=== PATIENT | female | born 1980 | race Two or more races ===

== ENCOUNTER 2017-07-25 07:17 | Inpatient (IN) | payer OTHER ==
[2017-07-21 17:49] VITALS: BMI 39.8
[2017-07-25] MEDS ORDERED: MIDAZOLAM HCL 2 MG/2 ML SINGLE DOSE VIAL ONE (10:17)
[2017-07-25] MEDS ORDERED: ROCURONIUM BROMIDE 50 MG/5 ML VIAL ONE (10:22)
[2017-07-25] MEDS ORDERED: PROPOFOL 20 ML ONE ×3 (10:22→11:40)
[2017-07-25] MEDS ORDERED: SUCCINYLCHOLINE CHLORIDE 200 MG/10 ML VIAL ONE (10:22)
[2017-07-25] MEDS ORDERED: ceFAZolin SODIUM 1 GM VIAL IVPB ONE (10:25)
[2017-07-25] MEDS ORDERED: BUPIVACAINE HCL/PF 0.5% (5MG/ML) 10 ML VIAL IJ ONE ×2 (10:51→11:37)
[2017-07-25] MEDS ORDERED: NEOSTIGMINE METHYLSULFATE 0.5 MG/ML - 10 ML MDV ONE (11:37)
[2017-07-25] MEDS ORDERED: GLYCOPYRROLATE 0.2 MG/1 ML VIAL ONE (11:37)
--- NOTE | 2017-07-25 11:57 | HP ---
History & Physical Update - History History: No Change - Physical Physical: No Change - Assessment Assessment: No Change - Plan Plan: No Change (Laparoscopic possible open vertical sleeve gastrectomy, possible liver biopsy, upper endoscopy)
[2017-07-25] MEDS ORDERED: HYDROmorphone HCL CARPU-JECT 1 MG/1 ML DISP.SYRIN IVPB PRN (11:59)
--- NOTE | 2017-07-25 11:59 | OP ---
Operative Note - Note: Operative Date: 07/25/17 Pre-Operative Diagnosis: Morbid obesity Operation: Laparoscopic vertical sleeve gastrectomy, liver biopsy, EGD Post-Operative Diagnosis: Other (Morbid obesity, hepatomegaly) Surgeon: Zhang Morgan Carbide Operator: Lauren Del Cid Anesthesia: General Specimens Removed: Greater curvature of stomach, liver biopsy Estimated Blood Loss (mls): 30 Drains & Tubes with Location: 36Fr Bougie Operative Report Dictated: Yes
--- NOTE | 2017-07-25 12:10 | SURG ---
Surgery Configuration Management Architect Note Configuration Management Architect: Lauren Del Cid PA-C Date of Service: 07/25/17 Diagnosis: Morbid obesity Procedure: Laparoscopic vertical sleeve gastrectomy, liver biopsy, EGD I was present for the entirety of the operative procedure. For further detail, please refer to operative report. Visit type - Case Type Case Type: Scheduled Admission - Emergency Emergency Visit: No - New patient This patient is new to me today: Yes Date on this admission: 07/25/17
[2017-07-25] MEDS ORDERED: FAMOTIDINE 20 MG/50 ML IVPB 20 MG/50 ML MG IVPB ONE (12:12)
[2017-07-25] MEDS: METOCLOPRAMIDE HCL INJECTION 10 MG/2 ML VIAL IVPUSH SCH ×2 (12:15→18:16)
[2017-07-25] MEDS ORDERED: ONDANSETRON 4 MG/2 ML VIAL IVPUSH PRN (12:18)
[2017-07-25] MEDS ORDERED: FAMOTIDINE 20 MG PREMIXED IVPB IVPB ONE (12:30)
[2017-07-25] MEDS: ACETAMINOPHEN 1000 MG/100 ML VIAL (NON FORMULARY) IVPB SCH ×2 (12:35→18:15)
[2017-07-25 13:48] LABS: HEMATOCRIT 41.1 % (32.4-45.2); HEMOGLOBIN 13.1 GM/dL (10.7-15.3); MCH 30.4 pg (25.7-33.7); MCHC 31.9 g/dl (32.0-36.0); MEAN CELL VOLUME 95.4 fl (80-96); MEAN PLT VOLUME 8.6 fl (7.5-11.1); PLATELET COUNT 258 K/MM3 (134-434); RBC 4.31 M/mm3 (3.60-5.2); RDW 13.8 % (11.6-15.6); WHITE BLOOD COUNT 13.3 K/mm3 (4.0-10.0)
[2017-07-25] MEDS ORDERED: PROMETHAZINE HCL 25 MG/1 ML VIAL IVPUSH ONE (14:00)
[2017-07-25 14:08] LABS: ALBUMIN 3.2 g/dl (3.4-5.0); ALK PHOS 89 U/L (45-117); ANION GAP 9 (8-16); BILIRUBIN,TOTAL 0.3 mg/dL (0.2-1.0); BLOOD UREA NITROGEN 14 mg/dL (7-18); CALCIUM 8.1 mg/dL (8.5-10.1); CHLORIDE 103 mmol/L (98-107); CO2 26 mmol/L (21-32); CREATININE 0.9 mg/dL (0.55-1.02); GLUCOSE,RANDOM 141 mg/dL (74-106); SGOT/AST 35 U/L (15-37); SGPT/ALT 44 U/L (12-78); SODIUM 138 mmol/L (136-145); TOT PROT 6.5 g/dl (6.4-8.2)
[2017-07-25] MEDS ORDERED: PROMETHAZINE HCL 25 MG/1 ML VIAL ONE (14:27)
[2017-07-25] MEDS ORDERED: PROMETHAZINE HCL 25 MG/1 ML VIAL IVPB PRN (15:07)
[2017-07-25] MEDS: ONDANSETRON 4 MG/2 ML VIAL IVPUSH SCH ×2 (15:36→22:46)
--- NOTE | 2017-07-25 16:08 | SPEC ---
DATE OF OPERATION: 07/25/2017 SURGEON: India Morgan MD BOAT OFFICER: ASHLY Marsh PREOPERATIVE DIAGNOSES: 1. Morbid obesity. 2. Body mass index 39.8. 3. Gastroesophageal reflux disease. POSTOPERATIVE DIAGNOSES: 1. Morbid obesity. 2. Body mass index 39.8. 3. Gastroesophageal reflux disease. 4. Hepatomegaly. PROCEDURES: 1. Laparoscopic vertical sleeve gastrectomy. 2. Laparoscopic wedge liver biopsy. 3. Upper endoscopy/esophagogastroduodenoscopy. SPECIMEN: 1. Greater curvature of the stomach. 2. Liver biopsy. ESTIMATED BLOOD LOSS: 30 mL DRAINS: None. ANESTHESIA: GET. BOUGIE: 36-Hebrew. REASON FOR PROCEDURE: This is a 36-year-old female who presented to the office for weight loss options. After describing different options, she decided to proceed with a laparoscopic, possible open vertical sleeve gastrectomy, possible liver biopsy, upper endoscopy. RISKS AND BENEFITS: After describing the different options for weight loss management, the patient decided to proceed with a laparoscopic, possible open vertical sleeve gastrectomy. The patient was seen by the respective subspecialties and cleared for surgery. The risks and benefits of the procedure were explained. These included bleeding, infection, hernia, CO, DVT, PE, injury to surrounding structures including the liver, colon, bowel, spleen, esophagus, vessel injury, nerve injury, weight regain, gastric leak, staple line leak, sleeve leak, obstruction, vitamin deficiency, hair loss and as some of the possible complications. The patient understood and signed informed consent. DESCRIPTION OF PROCEDURE: The patient was placed supine on the operating room table. The patient underwent general endotracheal intubation. A Hyatt catheter was inserted. The arms were brought out at 90 degrees and secured. A footboard was placed and the legs were secured laterally with padding. The abdomen was prepped and draped in the usual sterile fashion. A timeout was performed. An incision was made in the left upper quadrant and a Veress needle inserted. Pneumoperitoneum was established. Subsequently, the Veress needle was removed and a 12-mm trocar was placed. The laparoscopic camera was then inserted and inspection of the abdominal cavity was performed. An incision was then made in the supraumbilical area and a 15-mm trocar was placed under direct visualization. A 5-mm trocar was then placed in the right upper quadrant and a 5-mm trocar was placed below the left subcostal margin. A stab wound was made in the subxiphoid area and a Jocelyne clamp inserted and removed to dilate the tract. A Evita liver retractor was inserted. The post was secured at the bedside by the nursing staff. The patient was placed in steep reverse Trendelenburg position and the Evita liver retractor was used to secure the liver towards the anterior abdominal wall. The pylorus was identified and 6 cm proximal to it, the lesser sac was entered using the LigaSure device. All lateral attachments to the greater curvature of the stomach, including the short gastric vessels, were ligated using the LigaSure device toward the gastrosplenic and gastrophrenic ligaments. Once this was done in its entirety, it was confirmed that all tubes within the nasal or oropharyngeal cavity, including a temperature probe, was removed by Anesthesia. The bougie was then inserted by Anesthesia. Transection of the stomach was then begun staying adjacent to the bougie but away from the angularis. Transection of the stomach was performed near the portion of the stomach where the lesser sac was entered. Two laparoscopic Endo-MADDIE black marcos were used at this location. Laparoscopic Endo MADDIE purple staple loads were then used for the remainder of the transection until the greater curvature of the stomach was fully transected. This was done staying close to the bougie. Care was taken to stay away from the angle of His cephalad. The staple line was then inspected. Hemostasis was identified. A leak test was then performed. It was clamped distally to the staple line. Irrigation solution was placed in the left upper quadrant and air was insufflated by Anesthesia into the sleeve. No leaks were identified. No obstruction was identified. This was done through the entirety of the staple line. At this point, the irrigation solution was suctioned and again, hemostasis was noted. A wedge liver biopsy was then performed. The left lobe of the liver was identified and a portion of the edge was grasped. Using electrocautery, a wedge of the liver was excised. This was removed and sent off the field as specimen. Hemostasis at the site of the wedge liver biopsy was attained using electrocautery. The 15-mm supraumbilical trocar was then removed and the greater curvature specimen removed from the site using a sponge stick hdez. The specimen was inspected and a Veress needle inserted. The specimen insufflated adequately and no leak was identified. The staple line was noted to be intact. A Kane-Leena device was then used to temporarily close the fascia with a 0 Vicryl suture at the site. The 15-mm trocar was then reinserted and the 12-mm trocar in the left upper quadrant was removed. The fascia at this site was then closed using the Kane-Leena device with a 0 Vicryl suture. Again, hemostasis was noted. The Evita liver retractor was then removed under direct visualization. Pneumoperitoneum was desufflated and the fascial sutures were secured. Hemostasis was noted at all incision sites and Marcaine was injected at all incision sites. All incision sites were closed using 4-0 Biosyn. Sterile dressings were applied. The patient tolerated the procedure well and was transferred to the recovery room in stable condition with the Hyatt catheter intact. The patient was transferred to telemetry for further monitoring. In addition, an upper endoscopy was performed to further evaluate the staple line. The endoscope was inserted into the patient's mouth. The entirety of the esophagus, stomach, staple line, and gastric pouch were inspected. Hemostasis was noted. No leak or obstruction was noted. The stomach was suctioned and the endoscope removed. The patient tolerated the procedure well, transferred to recovery room in stable condition. INDIA MORGAN M.D. [id number]
[2017-07-25] MEDS: SODIUM CHLORIDE 1,000 ML IV SCH (18:16)
[2017-07-25] MEDS: FAMOTIDINE 20 MG/50 ML IVPB 20 MG/50 ML MG IVPB SCH (22:45)
[2017-07-25] MEDS: ENOXAPARIN NA (PORCINE) 40 MG/0.4 ML DISP.SYRIN SQ SCH (22:46)
[2017-07-25] MEDS: LACTATED RINGERS SOLUTION 1,000 ML IV SCH (23:09)
[2017-07-26] MEDS: ACETAMINOPHEN 1000 MG/100 ML VIAL (NON FORMULARY) IVPB SCH ×2 (01:48→06:14)
[2017-07-26] MEDS: METOCLOPRAMIDE HCL INJECTION 10 MG/2 ML VIAL IVPUSH SCH ×4 (01:48→18:27)
[2017-07-26] MEDS: ONDANSETRON 4 MG/2 ML VIAL IVPUSH SCH ×6 (01:48→22:25)
[2017-07-26 07:12] LABS: HEMOGLOBIN 12.7 GM/dL (10.7-15.3); MCH 30.7 pg (25.7-33.7); MCHC 32.6 g/dl (32.0-36.0); MEAN CELL VOLUME 94.1 fl (80-96); MEAN PLT VOLUME 8.6 fl (7.5-11.1); PLATELET COUNT 263 K/MM3 (134-434); RBC 4.15 M/mm3 (3.60-5.2); RDW 13.7 % (11.6-15.6); WHITE BLOOD COUNT 12.3 K/mm3 (4.0-10.0)
[2017-07-26 07:30] LABS: ALBUMIN 3.3 g/dl (3.4-5.0); ANION GAP 8 (8-16); BLOOD UREA NITROGEN 8 mg/dL (7-18); CHLORIDE 105 mmol/L (98-107); CO2 24 mmol/L (21-32); GLUCOSE,RANDOM 88 mg/dL (74-106); SGPT/ALT 44 U/L (12-78); SODIUM 137 mmol/L (136-145)
[2017-07-26 07:33] LABS: ALK PHOS 85 U/L (45-117); BILIRUBIN,TOTAL 0.7 mg/dL (0.2-1.0); CREATININE 0.7 mg/dL (0.55-1.02); SGOT/AST 36 U/L (15-37); TOT PROT 6.3 g/dl (6.4-8.2)
[2017-07-26] MEDS: LEVOTHYROXINE SODIUM 100 MCG VIAL IM SCH (10:07)
[2017-07-26] MEDS: ENOXAPARIN NA (PORCINE) 40 MG/0.4 ML DISP.SYRIN SQ SCH ×2 (10:07→22:19)
[2017-07-26] MEDS: FAMOTIDINE 20 MG/50 ML IVPB 20 MG/50 ML MG IVPB SCH ×2 (10:07→22:27)
[2017-07-26] MEDS: morphine SULFATE 4 MG/ML VIAL IVPUSH PRN (11:01)
--- NOTE | 2017-07-26 11:35 | PN ---
Progress Note, Physician Chief Complaint: s/p lap gastric sleeve History of Present Illness: under general anesthesia - Current Medication List Current Medications: Active Medications Enoxaparin Sodium (Lovenox -) 40 mg SQ BID [facility] Last Admin: 07/26/17 10:07 Dose: 40 mg Famotidine/Sodium Chloride (Pepcid 20 Mg Premixed Ivpb -) 20 mg in 50 mls @ 100 mls/hr IVPB BID [facility] Last Admin: 07/26/17 10:07 Dose: 100 mls/hr Sodium Chloride (Normal Saline -) 1,000 mls @ 150 mls/hr IV ASDIR [facility] Last Admin: 07/25/17 18:16 Dose: 150 mls/hr Lactated Ringer's (Lactated Ringers Solution) 1,000 mls @ 125 mls/hr IV ASDIR [facility] Last Admin: 07/25/17 23:09 Dose: 125 mls/hr Levothyroxine Sodium (Synthroid Injection -) 50 mcg IM DAILY [facility] Last Admin: 07/26/17 10:07 Dose: 50 mcg Metoclopramide HCl (Reglan Injection -) 10 mg IVPUSH Q6H [facility] Last Admin: 07/26/17 06:15 Dose: 10 mg Morphine Sulfate (Morphine Sulfate) 4 mg IVPUSH Q4H PRN PRN Reason: PAIN LEVEL 4 - 6 Last Admin: 07/26/17 11:01 Dose: 4 mg Ondansetron HCl (Zofran Injection) 4 mg IVPUSH Q4H [facility] Last Admin: 07/26/17 08:00 Dose: Not Given Ondansetron HCl (Zofran Injection) 4 mg IVPUSH Q6H PRN PRN Reason: NAUSEA AND/OR VOMITING Promethazine HCl (Phenergan Injection -) 12.5 mg IVPB Q6H PRN PRN Reason: NAUSEA-FOR RESCUE AFTER 15 MIN - Objective Vital Signs: Vital Signs Temperature 97.8 F 07/26/17 06:00 Pulse Rate 88 07/26/17 06:00 Respiratory Rate 20 07/26/17 06:00 Blood Pressure 142/76 07/26/17 06:00 O2 Sat by Pulse Oximetry (%) 97 07/25/17 21:00 Constitutional: Yes: Well Nourished Cardiovascular: Yes: WNL Respiratory: Yes: WNL Gastrointestinal: Yes: WNL Labs: CBC, BMP 02/28/18 06:35 07/26/17 06:35 Assessment/Plan No adverse effects from anesthetic. pain well controlled. Dept of anesthesia will sign off care at this time
--- NOTE | 2017-07-26 11:48 | PN ---
Progress Note (short form) - Note Progress Note: POD#1 PT states that she is oob and ambulating to the bathroom and in the hallways. Occasional nausea and pain intermittent and relieved with pain medications. She went to xray for her UGI study. No CP or SOB. Vital Signs Period Temp Pulse Resp BP Sys/Anderson Pulse Ox Last 24 Hr 97.3 F-98.7 F 49-88 14-20 94-142/37-78 95-100 GEN:A&0x3, NAD CV: RRR Lungs: CTA b/l ABD; soft, non-distended, inc tenderness. Inc c/d/i with bandaids LE: no calf tendneress or swelling noted. MIK in place. CBC, BMP 07/26/17 06:35 07/26/17 06:35 Laboratory Tests 07/25/17 13:05 WBC 13.3 H D Hgb 13.1 Hct 41.1 Plt Count 258 A/p: 36 yo female s/p laparroscopic sleeve gastrectomy, with liver biopsy and EGD UGI completed awaiting results from study if negative may begin bariatric POD #1 diet and protocol oob and ambulate DVT ppx with MIK/SCDs, lovenox SQ D/w Dr. Morgan <Lauren Del Cid - Last Filed: 07/26/17 11:55> - Note Progress Note: UGI: no leak/obstruction Clears Ambulate <Zhang Morgan - Last Filed: 07/26/17 16:10>
[2017-07-26] MEDS: SODIUM CHLORIDE 1,000 ML IV SCH (13:58)
[2017-07-26] MEDS: LACTATED RINGERS SOLUTION 1,000 ML IV SCH (13:59)
[2017-07-26] MEDS ORDERED: oxyCODONE HCL 5 MG TABLET PO PRN (14:12)
[2017-07-26] MEDS ORDERED: SODIUM CHLORIDE 1,000 ML IV SCH (14:15)
[2017-07-27] MEDS: ONDANSETRON 4 MG/2 ML VIAL IVPUSH SCH ×3 (01:38→08:54)
[2017-07-27] MEDS: METOCLOPRAMIDE HCL INJECTION 10 MG/2 ML VIAL IVPUSH SCH ×2 (01:38→06:26)
[2017-07-27] MEDS: morphine SULFATE 4 MG/ML VIAL IVPUSH PRN (05:12)
[2017-07-27 09:24] VITALS: BP 124/64; PULSE 80; TEMP 98
[2017-07-27] MEDS ORDERED: PT OWN MED DRAWER 7, Y5N ONE (09:59)
[2017-07-27] MEDS: ENOXAPARIN NA (PORCINE) 40 MG/0.4 ML DISP.SYRIN SQ SCH (10:00)
[2017-07-27] MEDS: LEVOTHYROXINE SODIUM 100 MCG VIAL IM SCH (10:00)
[2017-07-27] MEDS: FAMOTIDINE 20 MG/50 ML IVPB 20 MG/50 ML MG IVPB SCH (10:00)
--- NOTE | 2017-07-27 11:41 | PATH ---
Surgical Pathology Report Patient Name: MAYNOR VELASQUEZ [facility]. Rec. #: [id number] /Age/Gender: 1980 (Age: 36) / F Account: [id number] Location: 4 W TELEMETRY U Taken: 07/25/2017 Received: 07/25/2017 Reported: 07/27/2017 Physicians: Zhang Morgan M.D. Specimen(s) Received A: GREATER CURVATURE STOMACH B: LIVER BIOPSY Clinical History Morbid obesity Final Diagnosis A. STOMACH, GREATER CURVATURE, SLEEVE GASTRECTOMY: PORTION OF GASTRIC FUNDUS WITH NO SIGNIFICANT PATHOLOGIC CHANGES. IMMUNOSTAIN FOR H. PYLORI IS NEGATIVE. B. LIVER, WEDGE BIOPSY: MILD MACROVESICULAR STEATOSIS. SMALL HEMANGIOMA PRESENT. IRON STAIN IS NEGATIVE FOR SIDEROSIS. NO INCREASED FIBROSIS IDENTIFIED WITH TRICHROME STAIN. Electronically Signed Sunday Bruce M.D. Gross Description A. Received in formalin, labeled "greater curvature of stomach," is a 91 gram, 17.0 x 3.5 x 3.0 cm. portion of stomach with a stapled margin of resection. The serosa is reynolds-silva with minimal attached fat. The mucosa is reynolds-pink with normal folds. No mucosal masses are identified. Optometrist/Practice Owner sections are submitted in one cassette. B. Received in formalin labeled "liver biopsy," is a 2.3 x 1.4 x 1.0 cm aggregate of 3 fragments of liver tissue. Optometrist/Practice Owner sections are submitted in one cassette. /07/25/2017 saudi07/25/2017
== END 2017-07-27 12:21 | disposition home or self-care (01) | DRG 621 ==
LOC: JSAMEDAYSX 07:17 → EDSTATUS 09:00 → J4W 15:00
PROVIDERS: ADMIT Surgery; ATTEND Surgery
PROC: 0DB64Z3 Excision of Stomach, Percutaneous Endoscopic Approach, Vertical (ICD-10-PCS; principal; 2017-07-25 09:00)
PROC: 0FB24ZX Excision of Left Lobe Liver, Percutaneous Endoscopic Approach, Diagnostic (ICD-10-PCS; 2017-07-25 09:00)
PROC: 0DJ08ZZ Inspection of Upper Intestinal Tract, Via Natural or Artificial Opening Endoscopic (ICD-10-PCS; 2017-07-25 09:00)
DX: E66.01 Morbid (severe) obesity due to excess calories (principal); R16.0 Hepatomegaly, not elsewhere classified; K21.9 Gastro-esophageal reflux disease without esophagitis; Z68.39 Body mass index [BMI] 39.0-39.9, adult
CPT/HCPCS: 36415; 74241-TC-FY; 80053; 85027; 86850; 86900; 86901; 88305-TC; 88307-TC; 94010; 94760; J0131; J7030

== ENCOUNTER 2019-05-27 09:25 | Inpatient (IN) | payer OTHER ==
[2019-05-27] MEDS ORDERED: DINOPROSTONE 10 MG VAGINAL SUPPOSITORY VG ONE (09:59)
--- NOTE | 2019-05-27 10:05 | HP ---
Past Medical History - Admission Chief Complaint: Elective induction History of Present Illness: 38 yo @ 39 weeks gestation, EDC 05/28/19, admitted for cervidil induction. Upon admission she was 1-2cm dilated. History Source: Patient Limitations to Obtaining History: No Limitations - Past Medical History ...Para: 1 ...EDC by Cristian: 05/28/19 - Past Surgical History Past Surgical History: Yes: None Hx Myomectomy: No Hx Transabdominal Cerclage: No - Smoking History Smoking history: Former smoker Have you smoked in the past 12 months: No If you are a former smoker, when did you quit?: 3MONTHS AGO - Alcohol/Substance Use Hx Alcohol Use: Yes (SPECIAL OCCAS) - Social History Usual Living Arrangement: Yes: With Significant Other History of Recent Travel: No Home Medications - Allergies Allergies/Adverse Reactions: Allergies Allergy/AdvReac Type Severity Reaction Status Date / Time No Known Drug Allergies Allergy Verified 05/18/19 14:46 - Home Medications Home Medications: Ambulatory Orders Levothyroxine [Synthroid -] 1 tab PO DAILY 05/18/19 Pnv,Calcium 72/Iron,Carb/Folic [ Plus Iron Tablet] 1 tab PO DAILY Review of Systems - Review of Systems Constitutional: reports: No Symptoms Eyes: reports: No Symptoms HENT: reports: No Symptoms Neck: reports: No Symptoms Cardiovascular: reports: No Symptoms Respiratory: reports: No Symptoms Gastrointestinal: reports: No Symptoms Genitourinary: reports: No Symptoms Breasts: reports: No Symptoms Reported Musculoskeletal: reports: No Symptoms Neurological: reports: No Symptoms Psychiatric: reports: No Symptoms Pain Intensity: 2 Physical Exam - Maternity Constitutional: Yes: No Distress Eyes: Yes: Conjunctiva Clear HENT: Yes: Atraumatic Neck: Yes: Supple Cardiovascular: Yes: Regular Rate and Rhythm Lungs: Clear to auscultation Breast(s): Yes: WNL - Abdominal Exam/OB Number of Fetuses: Single Presentation: Vertex - Vaginal Exam/OB Vaginal Bleediing: No Speculum Exam: No Dilatation (cm): 1-2 Effacement (%): 70 Amniotic Membrane Status: Intact Problem List - Problems (1) 39 weeks gestation of Problems reviewed: Yes Code(s): Z3A.39 - 39 WEEKS GESTATION OF Assessment/Plan 39 weeks gestation Admit for cervidil induction Re-evaluate in 12 hours or before if indicated
[2019-05-27] MEDS ORDERED: NALOXONE HCL 0.4 MG/ML VIAL IVPUSH PRN (10:17)
[2019-05-27] MEDS ORDERED: FENTANYL/BUPIVACAINE/NS/PF - PCEA - 50 ML DISP.SYRIN EP SCH (10:30)
[2019-05-27 10:46] VITALS: BMI 30.4
[2019-05-27 11:18] LABS: BASO % 0.7 % (0-2.0); EOS % 0.9 % (0-4.5); HEMATOCRIT 41.7 % (32.4-45.2); HEMOGLOBIN 13.9 GM/dL (10.7-15.3); LYMPH % 20.1 % (8-40); MCH 32.8 pg (25.7-33.7); MCHC 33.3 g/dl (32.0-36.0); MEAN CELL VOLUME 98.3 fl (80-96); MEAN PLT VOLUME 9.5 fl (7.5-11.1); MONO % 7.3 % (3.8-10.2); PLATELET COUNT 254 K/MM3 (134-434); RBC 4.24 M/mm3 (3.60-5.2); RDW 13.7 % (11.6-15.6); WHITE BLOOD COUNT 9.4 K/mm3 (4.0-10.0)
[2019-05-27 11:27] LABS: INR 0.91 (0.83-1.09); PROTHROMBIN TIME (PATIENT) 10.7 SEC (9.7-13.0)
[2019-05-27 11:30] LABS: ACTIVATED PTT 28.8 SECONDS (25.2-36.5)
[2019-05-27 11:34] LABS: BLOOD UREA NITROGEN 13.2 mg/dL (7-18); CALCIUM 8.6 mg/dL (8.5-10.1); CREATININE 0.6 mg/dL (0.55-1.3); POTASSIUM 4.2 mmol/L (3.5-5.1)
[2019-05-27] MEDS: DEXTROSE 5%-LACTATED RINGERS 1,000 ML IV SCH ×2 (11:40→18:05)
[2019-05-27] MEDS ORDERED: SODIUM CHLORIDE 100 ML IVPB ONE ×2 (11:54→17:59)
[2019-05-27] MEDS ORDERED: AMPICILLIN SODIUM 2 GM VIAL ONE (11:55)
[2019-05-27] MEDS ORDERED: AMPICILLIN - 2 GM in SODIUM CHLORIDE 100 ML IVPB ONE (12:00)
[2019-05-27] MEDS ORDERED: PROMETHAZINE HCL 25 MG/1 ML VIAL IVPB ONE (16:00)
[2019-05-27] MEDS ORDERED: BUTORPHANOL TARTRATE 2 MG/ML VIAL IVPB ONE (16:00)
[2019-05-27] MEDS: AMPICILLIN - 1 GM in SODIUM CHLORIDE 100 ML IVPB SCH ×2 (17:03→18:31)
[2019-05-27] MEDS ORDERED: BUTORPHANOL TARTRATE 1 MG/ML VIAL ONE ×2 (17:49)
[2019-05-27] MEDS ORDERED: PROMETHAZINE HCL 25 MG/1 ML VIAL ONE (17:49)
[2019-05-27] MEDS ORDERED: AMPICILLIN SODIUM 1 GM VIAL ONE ×2 (17:59→21:29)
[2019-05-27] MEDS ORDERED: FENTANYL/BUPIVACAINE/NS/PF - PCEA - 50 ML DISP.SYRIN EP ONE (19:37)
[2019-05-27] MEDS ORDERED: BUPIVACAINE HCL/PF 2.5 MG/ML - 30 ML VIAL IJ ONE (19:54)
[2019-05-27] MEDS ORDERED: ELECTROLYTE-148 SOLN 1,000 ML IV SCH ×2 (20:00→21:00)
[2019-05-27] MEDS ORDERED: OXYTOCIN 20 UNITS in 0.9% NS 20 UNIT/1,000 ML INFUS.BAG IV ONE (20:38)
[2019-05-27] MEDS ORDERED: AMPICILLIN SODIUM 1 GM VIAL IVPB SCH (22:00)
[2019-05-27] MEDS ORDERED: BENZOCAINE 28 GM HEMORRHOIDAL OINTMENT TP PRN (22:08)
[2019-05-27] MEDS ORDERED: WITCH HAZEL 50% (TUCKS) 40 PAD/JAR PAD TP PRN (22:08)
[2019-05-27] MEDS ORDERED: BISACODYL 10 MG SUPP.RECT RC PRN (22:08)
[2019-05-27] MEDS ORDERED: BENZOCAINE 20% 57 GM BOTTLE TP PRN (22:08)
[2019-05-27] MEDS ORDERED: IBUPROFEN 600 MG TABLET (FP) PO PRN (22:08)
[2019-05-27] MEDS ORDERED: METHYLERGONOVINE MALEATE 0.2 MG/1 ML AMP IM PRN (22:08)
[2019-05-27] MEDS ORDERED: ACETAMINOPHEN 325 MG TABLET (FP) PO PRN (22:08)
--- NOTE | 2019-05-27 22:12 | PN ---
Delivery - Delivery Vaginal Delivery: Spontaneous Type of Anesthesia: Epidural Episiotomy/Laceration: 2nd degree EBL (cc): 300 Delivery, Single - [place] Feeding Plan Initial Plan: Exclusive throughout hospitalization Remarks - Remarks Remarks: Normal spontaneous vaginal delivery of a live girl over second degree laceration. Nose / Oropharynx suctioned @ perineum. Nuchal cord x 1 clamped and cut. Baby handed to nurse. Placenta expelled spontaneously intact. Laceration repaired with2.0 Chromic and 2.0 Biosyn. Mother in stable condition.
[2019-05-27] MEDS ORDERED: OXYTOCIN 20 UNITS in 0.9% NS 20 UNIT/1,000 ML INFUS.BAG IV SCH (22:15)
[2019-05-28 08:20] LABS: BASO % 0.8 % (0-2.0); EOS % 0.7 % (0-4.5); HEMATOCRIT 35.1 % (32.4-45.2); HEMOGLOBIN 11.8 GM/dL (10.7-15.3); LYMPH % 22.7 % (8-40); MCH 32.7 pg (25.7-33.7); MCHC 33.7 g/dl (32.0-36.0); MEAN CELL VOLUME 97.1 fl (80-96); MEAN PLT VOLUME 8.9 fl (7.5-11.1); MONO % 7.9 % (3.8-10.2); NEUT % 67.9 % (42.8-82.8); PLATELET COUNT 196 K/MM3 (134-434); RBC 3.62 M/mm3 (3.60-5.2); RDW 13.5 % (11.6-15.6); WHITE BLOOD COUNT 10.8 K/mm3 (4.0-10.0)
[2019-05-28] MEDS: FERROUS SO4 325 MG TABLET (FP) PO SCH ×2 (09:00→17:36)
[2019-05-28] MEDS: PRENATAL VITAMINS W/ FOLIC ACID TABLET (FP) PO SCH (09:42)
[2019-05-28] MEDS ORDERED: SENNOSIDES/DOCUSATE COMBO (SENNA PLUS) TABLET (UD) PO PRN (22:00)
--- NOTE | 2019-05-28 23:06 | PN ---
Post Note - Post Date of Delivery: 05/27/19 Vital Signs: Vital Signs - 24 hr 05/28/19 05/28/19 05/28/19 00:28 02:00 05:45 Temperature 98.5 F 98.1 F Pulse Rate 72 65 66 Respiratory 20 20 20 Rate Blood Pressure 109/60 97/38 L 99/53 L 05/28/19 05/28/19 05/28/19 08:04 13:31 17:05 Temperature 98.4 F 98.3 F 98.1 F Pulse Rate 73 89 74 Respiratory 18 18 18 Rate Blood Pressure 109/59 L 124/67 123/70 05/28/19 22:00 Temperature 97.9 F Pulse Rate 77 Respiratory 20 Rate Blood Pressure 121/72 Labs: Laboratory Results - last 24 hr 05/28/19 07:46 WBC 10.8 H RBC 3.62 Hgb 11.8 Hct 35.1 D MCV 97.1 H MCH 32.7 MCHC 33.7 RDW 13.5 Plt Count 196 D MPV 8.9 Absolute Neuts (auto) 7.3 Neutrophils % 67.9 Lymphocytes % 22.7 Monocytes % 7.9 Eosinophils % 0.7 Basophils % 0.8 Nucleated RBC % 0 - Subjective Subjective: No Complaints - Objective Afebrile: Yes Breast: Not engorged Abdomen: Soft, Non-tender Uterus: Fundus firm Vagina: Scant lochia Extremities: Non-tender - Assessment/Plan (1) (normal spontaneous vaginal delivery) Assessment: S/P Normal Plan: Routine Care
[2019-05-29 09:47] VITALS: BP 117/69; PULSE 81; TEMP 98.6
[2019-05-29] MEDS: PRENATAL VITAMINS W/ FOLIC ACID TABLET (FP) PO SCH (09:58)
[2019-05-29] MEDS: FERROUS SO4 325 MG TABLET (FP) PO SCH (09:58)
--- NOTE | 2019-05-29 22:16 | DS ---
Physical Exam-NEW ACCOUNTS BANKING REPRESENTATIVE Vital Signs: Vital Signs Temperature 98.6 F 05/29/19 09:46 Pulse Rate 81 05/29/19 09:46 Respiratory Rate 20 05/29/19 10:00 Blood Pressure 117/69 05/29/19 09:46 O2 Sat by Pulse Oximetry (%) 100 05/27/19 23:00 Constitutional: Yes: Well Nourished Eyes: Yes: Conjunctiva Clear HENT: Yes: Atraumatic Neck: Yes: Supple Cardiovascular: Yes: Regular Rate and Rhythm Respiratory: Yes: Regular Gastrointestinal: Yes: Normal Bowel Sounds ....Post : Yes: Uterus firm, Moderate lochia serosa Breast(s): Yes: WNL Musculoskeletal: Yes: WNL Extremities: Yes: WNL Neurological: Yes: Alert, Oriented Psychiatric: Yes: Alert, Oriented Labs: CBC, BMP 05/28/19 07:46 05/27/19 10:10 Delivery - Delivery Vaginal Delivery: Spontaneous Type of Anesthesia: Epidural Episiotomy/Laceration: Periurethral Extnsion/lac, 2nd degree EBL (cc): 300 Delivery, Single - Stages of Labor Date 1st Stage Initiatied: 05/27/19 Time 1st Stage Initiated: 17:45 Date 2nd Stage Initiated: 05/27/19 Time 2nd Stage Initiated: 21:25 Date of Delivery: 05/27/19 Time of Delivery: 21:45 Time Placenta Delivered: 21:47 - Condition of Infant Plastic Surgery Manager/Jet Dyeing Machine Operator Present: No Gender: Female Weight: 6 lb 4 oz Position: Right, OA Total Hours ROM (Hrs/Mins): 7 minutes - 1 Minute Total Score: 7 5 Minutes Total Score: 8 - [place] Feeding Plan Initial Plan: Exclusive throughout hospitalization Discharge Summary Problems reviewed: Yes Reason For Visit: INDUCTION OF LABOR Procedures: Principal: Normal spontaneous vaginal delivery Hospital Course: Routine care Health Concerns: None Plan of Treatment: Analgesia care in 6 weeks Goals: call for follow up appointment in 6 weeks. if heavy bleeding, fever or complications call md. Condition: Stable - Instructions Diet, Activity, Other Instructions: Regular diet F/U with MD in 6 weeks Referrals: Eli Oh MD [Staff Physician] - Disposition: HOME - Home Medications Comprehensive Discharge Medication List: Ambulatory Orders Levothyroxine [Synthroid -] 1 tab PO DAILY 05/18/19 Pnv,Calcium 72/Iron,Carb/Folic [ Plus Iron Tablet] 1 tab PO DAILY
== END 2019-05-29 12:15 | disposition home or self-care (01) | DRG 807 ==
LOC: JDEL 09:25 → JLDR 09:40 → J3W 05-28
PROVIDERS: ADMIT Obstetrics & Gynecology; ATTEND Obstetrics & Gynecology
PROC: 10E0XZZ Delivery of Products of Conception, External Approach (ICD-10-PCS; principal; 2019-05-27)
PROC: 0KQM0ZZ Repair Perineum Muscle, Open Approach (ICD-10-PCS; 2019-05-27)
PROC: 0W8NXZZ Division of Female Perineum, External Approach (ICD-10-PCS; 2019-05-27)
PROC: 3E0P7VZ Introduction of Hormone into Female Reproductive, Via Natural or Artificial Opening (ICD-10-PCS; 2019-05-27)
DX: O70.1 Second degree perineal laceration during delivery (principal); Z37.0 Single live birth; Z3A.39 39 weeks gestation of pregnancy
CPT/HCPCS: 36415; 59409; 80048; 85025; 85610; 85730; 86593; 86850; 86900; 86901

== ENCOUNTER 2021-06-12 11:03 | Day surgery (SDC) | payer OTHER ==
[2021-06-12 11:26] VITALS: TEMP 98.5
[2021-06-12] MEDS ORDERED: FERRIC CARBOXYMALTOSE 750 MG in SODIUM CHLORIDE 250 ML IVPB SCH (11:30)
[2021-06-12 11:37] VITALS: BMI 26.9
[2021-06-12 13:14] VITALS: BP 107/58; PULSE 60
== END 2021-06-12 13:15 | disposition home or self-care (01) ==
LOC: FINFUSION 11:03 → FM/S 11:04 → FINFUSION 13:15
PROVIDERS: ATTEND Family Medicine
DX: D50.9 Iron deficiency anemia, unspecified (principal)
CPT/HCPCS: 81025; 96365; J1439

== ENCOUNTER 2022-03-28 14:38 | Emergency (ER) | payer OTHER ==
[2022-03-28 14:54] VITALS: BP 137/81; PULSE 93; RESP 18; TEMP 98.2; BMI 29.5
== END 2022-03-28 19:15 | disposition home or self-care (01) ==
LOC: JER 14:38
DX: E07.9 Disorder of thyroid, unspecified (principal)
CPT/HCPCS: 99281-25

== ENCOUNTER 2022-10-29 12:37 | Day surgery (SDC) | payer OTHER ==
[2022-10-29] MEDS ORDERED: IRON SUCROSE INJECTION 200 MG in SODIUM CHLORIDE 100 ML IVPB ONE (13:00)
[2022-10-29 14:15] VITALS: BP 104/64; PULSE 72; RESP 18; TEMP 98.1
== END 2022-10-29 14:00 | disposition home or self-care (01) ==
LOC: FINFUSION 12:37 → FM/S 12:38 → FINFUSION 14:00
PROVIDERS: ATTEND Family Medicine
PROC: 3E033GC Introduction of Other Therapeutic Substance into Peripheral Vein, Percutaneous Approach (ICD-10-PCS; principal; 2022-10-29)
DX: D50.9 Iron deficiency anemia, unspecified (principal)
CPT/HCPCS: 96365; J1756

== ENCOUNTER 2022-11-05 09:03 | Day surgery (SDC) | payer OTHER ==
[2022-11-05] MEDS ORDERED: IRON SUCROSE INJECTION 200 MG in SODIUM CHLORIDE 100 ML IVPB ONE (09:45)
[2022-11-05 10:54] VITALS: BP 117/64; PULSE 82; RESP 18; TEMP 98
== END 2022-11-05 10:54 | disposition home or self-care (01) ==
LOC: FINFUSION 09:03 → FM/S 09:05 → FINFUSION 10:54
PROVIDERS: ATTEND Family Medicine
PROC: 3E033GC Introduction of Other Therapeutic Substance into Peripheral Vein, Percutaneous Approach (ICD-10-PCS; principal; 2022-11-05)
DX: D50.9 Iron deficiency anemia, unspecified (principal)
CPT/HCPCS: 96365; J1756

== ENCOUNTER 2022-11-12 09:52 | Day surgery (SDC) | payer OTHER ==
[2022-11-12] MEDS ORDERED: IRON SUCROSE INJECTION 200 MG in SODIUM CHLORIDE 100 ML IVPB ONE (10:30)
[2022-11-12 10:37] VITALS: RESP 18; TEMP 99
[2022-11-12 12:22] VITALS: BP 110/57; PULSE 80
== END 2022-11-12 12:23 | disposition home or self-care (01) ==
LOC: FINFUSION 09:52 → FM/S 10:21 → FINFUSION 12:23
PROVIDERS: ATTEND Family Medicine
PROC: 3E033GC Introduction of Other Therapeutic Substance into Peripheral Vein, Percutaneous Approach (ICD-10-PCS; principal; 2022-11-12)
DX: D50.9 Iron deficiency anemia, unspecified (principal)
CPT/HCPCS: 96365; J1756

== ENCOUNTER 2022-11-19 11:16 | Day surgery (SDC) | payer OTHER ==
[2022-11-19] MEDS ORDERED: IRON SUCROSE COMPLEX 200 MG in SODIUM CHLORIDE 100 ML IVPB SCH (11:45)
[2022-11-19 12:44] VITALS: BP 123/64; PULSE 67; RESP 18; TEMP 97.8
== END 2022-11-19 12:45 | disposition home or self-care (01) ==
LOC: FINFUSION 11:16 → FM/S 11:16 → FINFUSION 12:45
PROVIDERS: ATTEND Family Medicine
PROC: 3E033GC Introduction of Other Therapeutic Substance into Peripheral Vein, Percutaneous Approach (ICD-10-PCS; principal; 2022-11-19)
DX: D50.9 Iron deficiency anemia, unspecified (principal)
CPT/HCPCS: 96365